=== PATIENT | female | born 1950 | race Caucasian/White ===

== ENCOUNTER 2022-10-03 16:00 | Emergency (ER) | payer OTHER ==
[~2022-10-03] VITALS: Ht 157.5 cm; Wt 63.5 kg
[~2022-10-03 16:00] MED LIST: KLO1 PO; MOXI400T; PROP1TAB3 PO
[2022-10-03 16:19] VITALS: BP_SYST 137
--- NOTE | 2022-10-03 16:23 | NUR ---
Patient triaged and placed in waiting room. VSS and patient appears in no acute distress at this time. Accompanied by EMS , awaiting available bed, and MD notified of need for MSE.
--- NOTE | 2022-10-03 16:32 | NUR ---
MD DR. HADDAD EVALUATING PATIENT ON AMBULANCE [facility].
[2022-10-03] MEDS ORDERED: IBUPROFEN 600 MG TABLET PO ONE (16:45)
--- NOTE | 2022-10-03 17:35 | NUR ---
ASSIGNED TO PROVIDE CARE TO PATIENT WAITING ON AMBULANCE [facility] IN [facility] WITH REGISTERED NURSE SURGICAL SERVICES FOR UNK PERIOD OF TIME. PT STATES SHE HAD FLU SHOT ONE WEEK AGO AND THAT SHE HAS EXPERIENCED GENERALIZED WEAKNESS AND BILATERAL SHOULDER PAIN SINCE THE INJECTION. PT STATES THE PAIN IN THE SHOULDER ON LEFT IS WORSE THAN ON THE RIGHT. Pt HAS HX OF L KNEE SURGERY; HYSTERECTOMY; TIA, ANXIETY, HIGH CHOLESTEROL. PT IS A&OX4, CALM AND COOPERATIVE. CARE TO BE PROVIDED ORDERED.
[2022-10-03 17:52] LABS: BASOPHILS # (AUTO) 0.1 K/uL (0.0-0.2); BASOPHILS % (AUTO) 0.8 % (0.0-2.0); EOSINOPHILS # (AUTO) 0.2 K/uL (0.0-0.4); EOSINOPHILS % (AUTO) 2.6 % (0.0-4.0); HEMATOCRIT 41.7 % (36-48); LYMPHOCYTES # (AUTO) 2.4 K/uL (1.0-5.5); LYMPHOCYTES % (AUTO) 31.8 % (20.5-51.5); MEAN CORPUSCULAR HEMOGLOBIN 31 pg (27-31); MEAN CORPUSCULAR HGB CONC 34 % (32-36); MEAN CORPUSCULAR VOLUME 93 fL (79.0-98.0); MONOCYTES # (AUTO) 0.4 K/uL (0.0-1.0); MONOCYTES % (AUTO) 5.2 % (1.7-9.3); NEUTROPHILS # (AUTO) 4.4 K/uL (1.8-7.7); NEUTROPHILS % (AUTO) 59.6 % (40.0-70.0); PLATELET COUNT (AUTO) 315 K/uL (130-430); RED BLOOD CELL COUNT(AUTO) 4.51 MIL/uL (4.2-6.2); RED CELL DISTRIBUTION WIDTH 14.4 % (9.0-15.0); WHITE BLOOD COUNT (AUTO) 7.5 K/uL (4.8-10.8)
[2022-10-03 17:59] LABS: ANION GAP 8 (5-15); CALCIUM 9.3 mg/dL (8.4-11.0); CHLORIDE 106 mmol/L (98-107); CREATININE 0.87 mg/dL (0.55-1.30); GLUCOSE 93 mg/dL (70-99); UREA NITROGEN, BLOOD 11 mg/dL (8-21)
[2022-10-03 18:05] LABS: ALANINE AMINOTRANSFERASE 23 U/L (12-78); ALBUMIN 3.8 g/dL (3.4-4.8); ASPARTATE AMINOTRANSFERASE 36 U/L (10-37); TOTAL BILIRUBIN 0.4 mg/dL (0.0-1.0)
[2022-10-03] MEDS ORDERED: IBUP-1969 PO (18:53)
--- NOTE | 2022-10-03 19:09 | NUR ---
Patient given written and verbal discharge instructions and verbalizes understanding. ER Dr. Brad BAILEY discussed with patient the results and treatment provided. Patient in stable condition. ID arm band removed. Patient educated on pain management and to follow up with PMD. Pain Scale 6/10. Opportunity for questions provided and answered. Medication side effect fact sheet provided.
== END 2022-10-03 19:08 | disposition home or self-care (01) ==
LOC: SED 16:00
DX: M79.602 Pain in left arm (principal); T50.Z95A Adverse effect of other vaccines and biological substances, initial encounter; M79.10 Myalgia, unspecified site; R20.2 Paresthesia of skin; Z88.0 Allergy status to penicillin; Z88.2 Allergy status to sulfonamides; Z88.5 Allergy status to narcotic agent; Z79.899 Other long term (current) drug therapy
CPT/HCPCS: 36415; 70450-TC; 76376; 80053; 85025; 93005; 99284